=== PATIENT | male | born 1995 | race Caucasian/White ===

== ENCOUNTER 2017-09-10 16:46 | Emergency (ER) | payer OTHER ==
[2017-09-10] MEDS: KETOROLAC 60 MG INJ IM (17:15)
== END 2017-09-10 20:06 | disposition home or self-care (01) ==
LOC: FTE 20:06
DX: N50.811 Right testicular pain (principal)
CPT/HCPCS: 76870; 96372; 99285-25

== ENCOUNTER 2019-01-14 22:03 | Emergency (ER) | payer OTHER ==
[2019-01-14] MEDS: HYDROCODONE/APAP (5/325) TAB PO (23:14)
== END 2019-01-15 00:56 | disposition home or self-care (01) ==
LOC: FTE 01-15 00:56
DX: S69.91XA Unspecified injury of right wrist, hand and finger(s), initial encounter (principal); W18.39XA Other fall on same level, initial encounter; Y92.9 Unspecified place or not applicable
CPT/HCPCS: 29125; 73130-RT; 99283-25